=== PATIENT | female | born 1960 | race Caucasian/White ===

== ENCOUNTER 2024-01-31 07:37 | Outpatient (CLI) | payer MEDICARE, BC, SELFPAY ==
--- NOTE | 2024-01-31 08:00 | CRLHL7_ITS ---
For Patients: As a result of the Century Cures Act, medical imaging exams and procedure reports are released immediately into your electronic medical record. You may view this report before your referring provider. If you have questions, please contact your health care provider. INDICATION: Pulmonary nodule TECHNIQUE: CT chest without contrast. COMPARISON: October 2023. FINDINGS: Lungs and Airways: Stable middle lobe indeterminate pulmonary nodule measuring 11 millimeters. This has intrinsic bubbly lucencies. Multiple calcified granulomas. Linear reticular opacities likely linear fibrosis. A few additional stable scattered 1-3 millimeter indeterminate pulmonary nodules. No endoluminal lesion. Heart and Mediastinum: The visualized portions of the thyroid are normal. No axillary or supraclavicular lymphadenopathy. No mediastinal, hilar or retrocrural lymphadenopathy. Normal heart size. Ectasia of the ascending aorta measuring 47 millimeters. Atherosclerotic calcifications. Coronary artery calcifications. Pleura: The pleural spaces are normal. Abdomen: Diffuse hepatic steatosis. Cholecystectomy. Calcified splenic granulomas. 19 millimeter left adrenal nodule with simple fluid attenuation, statistically an adenoma. Bones and soft tissues: ACDF. IMPRESSION: 1. Stable middle lobe indeterminate pulmonary nodule measuring 11 millimeters. This has intrinsic bubbly lucencies. Recommend unenhanced chest CT in 6 months to document stability and assess underlying malignant potential. 2. A few stable scattered 1-3 millimeter indeterminate pulmonary nodules. 3. No intrathoracic mass or consolidation. Please note that all CT scans at this facility use dose modulation, iterative reconstruction, and/or weight-based dosing when appropriate to reduce radiation dose to as low as reasonably achievable. Dictated by Douglas Manley MD @ 02/03/2024 12:23:49 PM (Electronically Signed)
== END 2024-01-31 07:38 | disposition home or self-care (01) ==
PROVIDERS: PCP Family Medicine; Visit Provider Internal Medicine Pulmonary Disease
DX: R91.1 Solitary pulmonary nodule (principal); R91.8 Other nonspecific abnormal finding of lung field
CPT/HCPCS: 71250

== ENCOUNTER 2024-05-18 08:22 | Outpatient (CLI) | payer MEDICARE, BC, SELFPAY ==
--- NOTE | 2024-05-18 09:32 | W.ANESCHARGE ---
Anesthesia Charges Start Date/Time Anesthesia Start Date: 05/18/24 Anesthesia Start Time: 09:05 Stop Date/Time Anesthesia Stop Date: 05/18/24 Anesthesia Stop Time: 09:29
--- NOTE | 2024-05-18 09:33 | W.ANESCHARGE ---
Anesthesia Charges Start Date/Time Anesthesia Start Date: 05/18/24 Anesthesia Start Time: 09:05 Stop Date/Time Anesthesia Stop Date: 05/18/24 Anesthesia Stop Time: 09:29
== END 2024-05-18 08:23 | disposition home or self-care (01) ==
LOC: OP CLINIC 08:23
PROVIDERS: PCP Family Medicine; Visit Provider Internal Medicine Gastroenterology
DX: Z12.11 Encounter for screening for malignant neoplasm of colon (principal); D12.2 Benign neoplasm of ascending colon; Z86.0101 Personal history of adenomatous and serrated colon polyps
CPT/HCPCS: 00811; 45385; J2704

== ENCOUNTER 2024-07-27 10:45 | Outpatient (CLI) | payer MEDICARE, BC, SELFPAY ==
--- NOTE | 2024-07-27 11:00 | CRLHL7_ITS ---
For Patients: As a result of the Century Cures Act, medical imaging exams and procedure reports are released immediately into your electronic medical record. You may view this report before your referring provider. If you have questions, please contact your health care provider. Indication: FOLLOW UP LUNG NODULE Technique: Noncontrast CT chest Please note that all CT scans at this facility use dose modulation, iterative reconstruction, and/or weight-based dosing when appropriate to reduce radiation dose to as low as reasonably achievable. Comparison: 01/31/2024 Findings: Unchanged 11 x 9 x 9 millimeter nodule within the right middle lobe. Dependent areas of scarring/atelectasis. Calcified densities in the left upper lobe are similar. No infiltrate or edema. No effusion or pneumothorax. Visualized thyroid is normal. No enlarged lymph nodes. Fatty liver. Gallbladder absent. Stable benign left adrenal adenoma. Calcified granulomas in the spleen. Simple cyst left kidney. Similar osseous structures. Impression: Stable 11 millimeter right middle lobe pulmonary nodule. Please note that all CT scans at this facility use dose modulation, iterative reconstruction, and/or weight-based dosing when appropriate to reduce radiation dose to as low as reasonably achievable. Dictated by Douglas Leone MD @ 07/27/2024 12:33:16 PM (Electronically Signed)
== END 2024-07-27 10:46 | disposition home or self-care (01) ==
LOC: CT 10:47
PROVIDERS: PCP Family Medicine; Visit Provider Internal Medicine Pulmonary Disease
DX: R91.1 Solitary pulmonary nodule (principal)
CPT/HCPCS: 71250

== ENCOUNTER 2025-06-14 09:34 | Outpatient (CLI) | payer MEDICARE, BC, SELFPAY ==
--- NOTE | 2025-06-14 11:00 | CRLHL7_ITS ---
For Patients: As a result of the Century Cures Act, medical imaging exams and procedure reports are released immediately into your electronic medical record. You may view this report before your referring provider. If you have questions, please contact your health care provider. Indication: Lung nodule Technique: Noncontrast CT chest Please note that all CT scans at this facility use dose modulation, iterative reconstruction, and/or weight-based dosing when appropriate to reduce radiation dose to as low as reasonably achievable. Comparison: 07/27/2024 Findings: Benign left adrenal adenoma again noted which measures 1.4 cm. Calcified splenic granulomas. Gallbladder absent. Fatty infiltration of the liver. The visualized thyroid is unremarkable. No adenopathy. No fracture. Coronary artery calcifications. Calcified left hilar and mediastinal lymph nodes. Clustered calcified nodules in the left upper lobe are stable. Small calcified nodules are present elsewhere bilaterally. Nodular cluster within the right lung base remains similar measuring up to 11 millimeters. Mild dependent scarring bilaterally. Impression: Clustered nodules within the right middle lobe remains similar. Scattered calcified nodules bilaterally particularly in the left upper lobe. Please note that all CT scans at this facility use dose modulation, iterative reconstruction, and/or weight-based dosing when appropriate to reduce radiation dose to as low as reasonably achievable. Dictated by Douglas Leone MD @ 06/14/2025 10:54:47 AM (Electronically Signed)
== END 2025-06-14 09:35 | disposition home or self-care (01) ==
LOC: CT 09:35
PROVIDERS: PCP Family Medicine; Visit Provider Internal Medicine Pulmonary Disease
DX: R91.1 Solitary pulmonary nodule (principal); R91.8 Other nonspecific abnormal finding of lung field; D35.00 Benign neoplasm of unspecified adrenal gland; K76.0 Fatty (change of) liver, not elsewhere classified; I25.10 Atherosclerotic heart disease of native coronary artery without angina pectoris; Z90.49 Acquired absence of other specified parts of digestive tract
CPT/HCPCS: 71250